=== PATIENT | male | born 1975 | race Caucasian/White ===

== ENCOUNTER 2018-04-21 13:08 | Day surgery (SDC) | payer BC ==
[~2018-04-21] VITALS: Ht 190.5 cm; Wt 138.9 kg
[~2018-04-21 13:08] MED LIST: FLOMAX 0.40.4 MG/CAP PO; PERCOCET 325 MG1 TA2 PO; PRIL40 PO; ULTRAM 50MG TAB50 MG PO
[2018-04-21 13:39] VITALS: BP 140/94; PULSE 71; TEMP 97.1
[2018-04-21] MEDS ORDERED: WELLBUTRIN XL150 MG PO (13:40)
[2018-04-21] MEDS ORDERED: ZOLOFT 50MG50 MG PO (13:40)
[2018-04-21] MEDS ORDERED: FLONASE NASAL S16 GM NS (13:40)
[2018-04-21] MEDS ORDERED: MULTIPLE VITAMI1 TA5 PO (13:41)
[2018-04-21] MEDS ORDERED: THE MEDICINE S200 M2 PO (13:41)
[2018-04-21] MEDS ORDERED: DHEA 10 MG TAB1 EACH PO (13:41)
[2018-04-21] MEDS ORDERED: OMEGA-3 1000 MG1 CAP PO (13:41)
[2018-04-21] MEDS ORDERED: B-121000 MCG PO (13:41)
[2018-04-21] MEDS ORDERED: DHEA25 M3 PO (13:55)
[2018-04-21 15:35] VITALS: BP 111/78; PULSE 70; TEMP 97.4
[2018-04-21 15:45] VITALS: BP 113/74; PULSE 62
[2018-04-21 16:00] VITALS: BP 111/74; PULSE 60
[2018-04-21 18:33] VITALS: BP 119/69; PULSE 56
== END 2018-04-21 16:10 | disposition home or self-care (01) ==
LOC: SDCO 13:08
DX: D12.2 Benign neoplasm of ascending colon (principal); D12.5 Benign neoplasm of sigmoid colon; K59.00 Constipation, unspecified; Z83.71 Family history of colonic polyps
CPT/HCPCS: J2250; J2405; J3010; J7030

== ENCOUNTER 2021-04-05 06:55 | Day surgery (SDC) | payer BC ==
[~2021-04-05] VITALS: Ht 190.5 cm; Wt 142.5 kg
[~2021-04-05 06:55] MED LIST changes: +B-121000 MCG PO; +DHEA 10 MG TAB1 EACH PO; +DHEA25 M3 PO; +FLONASE NASAL S16 GM NS; +MULTIPLE VITAMI1 TA5 PO; +OMEGA-3 1000 MG1 CAP PO; +THE MEDICINE S200 M2 PO; +WELLBUTRIN XL150 MG PO; +ZOLOFT 50MG50 MG PO
[2021-04-05 07:16] VITALS: BP 133/98; PULSE 76; TEMP 96.5
[2021-04-05 08:35] VITALS: BP 121/88; PULSE 69; TEMP 97.7
[2021-04-05 08:45] VITALS: BP 124/94; PULSE 68
[2021-04-05 09:00] VITALS: BP 111/76; PULSE 61
--- NOTE | 2021-04-05 09:03 | NUR ---
0835 Pt returns from endo procedure via cart and RN assist to [facility]. Pt ambulates from cart to recliner with RN assist. Monitors on and alarms set. Call light within reach. Report received from CAITLIN Connors. Pt alert and oriented. Pt requests lots of food and coffee. Pt denies any pain or nausea. 0845 Pt taking food and drink well. No complications noted. 0859 Discharge instructions given to pt and . All questions answered to their satisfaction. Handed to pt are a thank you card and discharge information. 0903 Pt transferred out of the hospital via wheelchair and this RN assist, to private vehicle driven by pt's .
== END 2021-04-05 09:03 | disposition home or self-care (01) ==
LOC: SDCO 06:55
DX: Z12.11 Encounter for screening for malignant neoplasm of colon (principal); D12.0 Benign neoplasm of cecum; K63.5 Polyp of colon; D12.3 Benign neoplasm of transverse colon; D12.8 Benign neoplasm of rectum; K21.9 Gastro-esophageal reflux disease without esophagitis; G43.909 Migraine, unspecified, not intractable, without status migrainosus; E66.9 Obesity, unspecified; G47.30 Sleep apnea, unspecified; F32.9 Major depressive disorder, single episode, unspecified; F41.9 Anxiety disorder, unspecified; Z20.822 Contact with and (suspected) exposure to COVID-19; Z79.899 Other long term (current) drug therapy
CPT/HCPCS: J2704; J7120